=== PATIENT | male | born 1945 | race Caucasian/White ===

== ENCOUNTER → 2022-06-26 | Outpatient (CLI) | payer MEDICARE, SELFPAY ==
--- NOTE | 2022-06-26 16:43 | CT_ITS ---
INDICATION: OCCULAR PROPTOSIS EXAMINATION: CT IAC TEMPORAL BONES - CT IAC/PF/Orbit/Sella WO/W Contrast Injection TECHNIQUE:Routine noncontrast CT protocol was performed of the internal auditory canals and temporal bones. 2-D reformats were performed by the technologist. A radiation dose optimization technique was used for this scan. IV Contrast dosage and agent: None. COMPARISON: None. 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 This is likely orbital in origin. This is detailed on separate report of CT of the brain/head without and with contrast. RIGHT SIDE: No fracture. SUPERFICIAL SOFT TISSUES: Unremarkable. MASTOID AIR CELLS: Well aerated, unremarkable. EXTERNAL AUDITORY CANALS: Clear. MIDDLE EAR CAVITIES: Well aerated. Ossicles and scutum intact. INTERNAL AUDITORY CANALS: Unremarkable bilateral internal auditory canals. No osseous erosion or widening of the canal. INNER EAR: Unremarkable cochlea, vestibule and semicircular canals. LEFT SIDE: No fracture. SUPERFICIAL SOFT TISSUES: Unremarkable. MASTOID AIR CELLS: Well aerated, unremarkable. EXTERNAL AUDITORY CANALS: Clear. MIDDLE EAR CAVITIES: Well aerated. Ossicles and scutum intact. INTERNAL AUDITORY CANALS: Unremarkable bilateral internal auditory canals. No osseous erosion or widening of the canal. INNER EAR: Unremarkable cochlea, vestibule and semicircular canals. VISUALIZED BRAIN AND POSTERIOR FOSSA: Cerebello-pontine angles are unremarkable. CT/Orb Sella Post Fossa Ear W/WO IMPRESSION: Right orbital/frontal sinus mass. See separate report. IACs without and with contrast are normal. Electronically Signed: Umberto Feliciano MD, WADE at 17:12 EST ,
--- NOTE | 2022-06-26 16:43 | CT_ITS ---
INDICATION: OCCULAR PROPTOSIS EXAMINATION: CT BRAIN WITH AND WITHOUT CONTRAST - CT Head or Brain WO/W Contrast Injection TECHNIQUE: Multiple axial images were obtained of the brain with and without IV contrast. A radiation dose optimization technique was used for this scan. IV Contrast dosage and agent: COMPARISON: None. FINDINGS: BRAIN PARENCHYMA: Moderate cortical and central atrophy. Mild chronic microvascular ischemic change periventricular white matter. Moderate cerebellar atrophy. No intra- or extra-axial hemorrhage. No evidence of acute infarct. No intracranial mass or mass effect. There is preservation of the fatima/white matter interface. No abnormal contrast enhancement. CSF SPACES: Appropriate for age. No hydrocephalus. Basal cisterns are patent. CALVARIUM, SKULL BASE, PARANASAL SINUSES AND MASTOID AIR CELLS: Clear. No discrete lytic or blastic abnormalities. ORBITS: There is an enhancing soft tissue mass within the right orbit. This extends into the right frontal sinus. This produces inferior and anterior displacement of the right globe with moderate right exophthalmos. This mass lesion measures 3.39 cm transverse by 2.33 cm craniocaudal by 3.22 cm AP. Differential diagnostic considerations would include lymphoma, metastatic disease as well as lacrimal gland or duct neoplasm. Other considerations considered less likely would include rhabdomyosarcoma of the orbit. Retinoblastoma or optic nerve meningioma would be considered less likely as this appears to be originating outside of the globe and extrinsic to the optic nerve. ASPECTS Score for Acute Strokes: 10 CT/Brain/Head W/WO Contrast IMPRESSION: Right superior orbital mass. This produces inferior and anterior displacement of the right globe with moderate right exophthalmos. Differential considerations would include lymphoma or metastatic disease. Additional differential considerations detailed within the body of the report. Moderate cortical and central atrophy. Moderate cerebellar atrophy. Mild chronic microvascular ischemic change periventricular white matter. Electronically Signed: Umberto Feliciano MD, WADE at 17:07 EST ,
[2022-06-26 17:50] LABS: CREATININE FINGERSTICK < 0.9 mg/dL (0.70-1.30); EGFR FINGERSTICK > 60.0000 mL/min (>60)
== END | disposition home or self-care (01) ==
LOC: CT 16:41
PROVIDERS: PCP Preventive Medicine Occupational Medicine; Visit Provider Ophthalmology
DX: H05.20 Unspecified exophthalmos (principal)
CPT/HCPCS: 70470; 70482; Q9967

== ENCOUNTER 2022-06-29 17:06 | Emergency (ER) | payer MEDICARE, SELFPAY ==
[2022-06-29 17:07] VITALS: BP 188/51; PULSE 46; RESP 18; TEMP 36.4; O2SAT 97; BMI 27.3
[2022-06-29 17:19] VITALS: BP 196/67; PULSE 44; RESP 14; O2SAT 99
--- NOTE | 2022-06-29 17:30 | EKG12_ITS ---
Test Reason : MARILYN Blood Pressure : / mmHG Vent. Rate : 041 BPM Atrial Rate : 041 BPM P-R Int : 212 ms QRS Dur : 098 ms QT Int : 512 ms P-R-T Axes : 019 009 044 degrees QTc Int : 422 ms Marked sinus bradycardia with 1st degree A-V block Abnormal ECG Confirmed by GITA SEGURA, CHRISSY ([id number]), editorial cartoonist VIANEY HONEYCUTT ([id number]) on 07/01/2022 10:37:38 AM Referred By: NESTOR/ARAVIND Confirmed By:CHRISSY PELAYO MD
--- NOTE | 2022-06-29 17:31 | EDS_ITS ---
HPI History of Present Illness Chief Complaint: Chest Other Narrative Narrative: 77-year-old male presenting for evaluation of bradycardia. He states his heart rate is usually around 55. He was seen at [facility] today for preop clearance to have direct surgery, and had an EKG which was reportedly abnormal. Patient has not had any chest pain, palpitations, shortness of breath, fever, chills, cough. He does not feel dizzy. He states he is not lightheaded. He has been otherwise well. He is eating and drinking normally. Is making normal urine and stool. He has a history of four-vessel CABG distantly. He is not on any blood thinners. He does report that he is on losartan and carvedilol at home. There is been no medication changes. [facility] Medical History (Updated 06/29/22 @ 17:23 by Annabelle Ortez) Heart attack Hyperlipidemia Hypertension Allergy/AdvReac Type Severity Reaction Status Date / Time rofecoxib [From Vioxx] Allergy PT UNABLE Verified 06/29/22 17:26 TO RESPOND-NEEDS F/U Social History Smoking Status: Never smoker ROS ROS ED Constitutional Constitutional ED: Denies chills, fever(s) or sweats Eyes Eyes: Denies blurry vision or change in vision ENT ENT ED: Denies ear pain or sore throat Cardiovascular Cardiovascular: Denies chest pain, palpitations or racing heartbeat Respiratory/Chest Respiratory/Chest: Denies cough, dyspnea or sputum Gastrointestinal Gastrointestinal: Denies abdominal pain, constipation, diarrhea, nausea or vomiting Genitourinary Genitourinary ED: Denies dysuria, hematuria or urinary frequency Musculoskeletal Musculoskeletal: Denies arthralgias, myalgias or neck pain Integumentary Denies abscess, Abrasions or rash Neurologic Neurologic: Denies headache(s), paresthesias or weakness Psychiatric Psychiatric: Denies anxiety, depression, suicidal ideation or suicidal thoughts Endocrine Endocrinology: Denies polydipsia or polyuria EXAM Physical Exam Const Vital Signs: 06/29/22 17:07 06/29/22 17:19 06/29/22 17:23 Temperature 97.6 F L Temperature Source Temporal Pulse Rate 46 L 44 L Respiratory Rate 18 14 Respiratory Effort Normal Respiratory Pattern Normal Blood Pressure 188/51 H 196/67 H Blood Pressure Mean 96 110 Pulse Ox 97 99 Oxygen Delivery Method Room Air Room Air 06/29/22 17:30 Temperature Temperature Source Pulse Rate Respiratory Rate Respiratory Effort Respiratory Pattern Blood Pressure Blood Pressure Mean Pulse Ox Oxygen Delivery Method Room Air Positive well nourished General Appearance ED: NAD; Negative for pallor HEENT Reports moist mucous membranes Negative for trauma or tenderness Eyes PERRL and EOMs intact bilaterally General Eye ED: Negative for pale conjunctiva or scleral icterus Chest Wall inspection of chest normal Resp normal respiratory effort and clear to auscultation bilaterally Auscultation: Negative for rales, rhonchi or wheezes Cardio regular rhythm Rate: bradycardia GI normal to inspection, nondistended, normoactive bowel sounds Neuro oriented x3 and CN's II-XII intact bilaterally Sensorium / Orientation: alert Psych mental status grossly normal Skin no rashes or lesions noted, no wounds and skin turgor normal General Skin Exam: Negative for jaundice or pallor MDM MDM MDM Narrative Medical decision making narrative: Patient presenting with bradycardia. He states his heart rate is usually 55. He presents with an EKG which shows sinus bradycardia with a rate of 40 bpm. EKG was performed here and on my interpretation at 42 bpm with first-degree AV block. [place] interval 276 ms. CBC was obtained to see his differential. White blood count 7.6. Hemoglobin hematocrit are normal. Platelets within normal is at 202. Chemistry was obtained to assess renal function electrolytes. These are normal. High-sensitivity troponin is 11. Chest x-ray on my interpretation shows no acute cardiopulmonary process. Radiologist interprets this and agrees. Patient states that he is typically bradycardic. He is completely asymptomatic of it. He wants to be discharged home. I have not found a reason why he needs to stay in the hospital. Patient is to follow-up with his casing tester at the [place]. He is discharged in stable condition. Impression: 1. Sinus bradycardia Lab Data Attestation: I reviewed the patient's lab results. Labs: Laboratory Results - last 24 hr 06/29/22 06/29/22 17:25 17:25 WBC 7.6 RBC 5.24 Hgb 16.3 Hct 47.8 MCV 91.2 MCH 31.1 MCHC 34.1 RDW Std Deviation 42.2 RDW Coeff of Kal 12.8 Plt Count 202 MPV 10.3 Immature Gran % (Auto) 0.300 Neut % (Auto) 72.3 H Lymph % (Auto) 19.5 [place] % (Auto) 5.5 Eos % (Auto) 1.7 Baso % (Auto) 0.7 Absolute Neuts (auto) 5.5 Absolute Lymphs (auto) 1.49 Nucleated RBC % 0 Sodium 141 Potassium 4.0 Chloride 108 H Carbon Dioxide 26.0 Anion Gap 7 BUN 17 Creatinine 0.95 Estim Creat Clear Calc 68.30 Est GFR (MDRD) Af Amer 100 Est GFR (MDRD) Non-Af 82 BUN/Creatinine Ratio 18.0 Glucose 98 Calcium 8.9 Troponin I High Sens 11 Radiography Diagnostic Testing: Clinical Impression(s) from Imaging Studies Chest X-Ray 06/29/22 17:47 IMPRESSION: Evidence of prior CABG. There is no acute cardiopulmonary disease. Electronically Signed: Asael Torre DO at 18:00 EST Reading Location ID and State: [address] [place] [address] Tel [phone], Service support , Discharge Plan Triage Chief Complaint: Chest Other ED Provider: Eddie Cisse Dx/Rx/DC Orders Instructions: ED Bradycardia Primary Care Provider: Edgar Patten Referrals: Edgar Patten DO [Primary Care Provider] - Disposition Disposition: Home, Self Care
[2022-06-29 17:41] LABS: Absolute Lymphocyte Count 1.49 X10^3/uL (0.83-4.51); Absolute Neutrophil Count 5.5 X10^3/uL (2.0-7.7); Basophil# 0.05 X10^3/uL; Basophil% 0.7 % (0-1); Eosinophil# 0.13 X10^3/uL; Eosinophils% 1.7 % (0-5); Hematocrit 47.8 % (40-54); Hemoglobin 16.3 g/dL (13.0-16.5); Lymphocyte # 1.49 X10^3/ul (0.83-4.51); Lymphocyte % 19.5 % (19-41); Mean Corp Hgb Conc 34.1 g/dL (32-36); Mean Corpuscular Hgb 31.1 pg (27.0-32.0); Mean Corpuscular Volume 91.2 fL (80-94); Mean Platelet Vol. 10.3 fl (6.2-12.0); Monocyte# 0.42 X10^3/uL; Monocyte% 5.5 % (0-10); NRBC Flagged by Analyzer 0 % (0-5); Neutrophil # 5.52 X10^3/uL (2.7-7.7); Neutrophil % 72.3 % (47-70); Platelet Count 202 K/mm3 (150-450); RBC Distribution Width CV 12.8 % (11.6-14.6); RBC Distribution Width SD 42.2 fl (35.1-43.9); Red Blood Count 5.24 M/mm3 (4.6-6.2); White Blood Count 7.6 K/mm3 (4.4-11.0)
--- NOTE | 2022-06-29 17:47 | RAD_ITS ---
STUDY: X-RAY CHEST REASON FOR EXAM: Male, 77 years old. Chest pain. Sent over for abnormal EKG. TECHNIQUE: Single AP portable view of the chest. COMPARISON: None. FINDINGS: The lungs are clear and expanded. There is no demonstrated pleural abnormality. Evidence of prior CABG procedure. The heart is normal in size. Normal mediastinum and larry. Normal visualized pulmonary arteries. Normal visualized aortic arch and descending thoracic aorta. There are diffuse degenerative changes of the visualized thoracic spine. Normal visualized ribs, clavicles, and shoulders. There is no demonstrated abnormality of the visualized soft tissue structures of the upper abdomen. RAD/Chest 1 View (Portable) IMPRESSION: Evidence of prior CABG. There is no acute cardiopulmonary disease. Electronically Signed: Asael Torre DO at 18:00 EST ,
[2022-06-29 18:13] LABS: Anion Gap 7 (5-15); BUN 17 mg/dL (7-18); Calcium,Total 8.9 mg/dL (8.5-10.1); Chloride 108 mmol/L (98-107); Creatinine, Serum 0.95 mg/dL (0.70-1.30); EST Glomerular Filtration Rate 82 mL/min (>60); Est Glom Filt Rate - Afr Amer 100 mL/min (>60); Glucose 98 mg/dL (74-106); Sodium Level 141 mmol/L (136-145); Troponin-I HS 11 pg/mL (3.0-78.0)
[2022-06-29 19:10] VITALS: BP 189/63; PULSE 46
== END 2022-06-29 19:13 | disposition home or self-care (01) ==
PROVIDERS: Emergency Provider Student in an Organized Health Care Education/Training Program; PCP Preventive Medicine Occupational Medicine; Visit Provider Student in an Organized Health Care Education/Training Program
DX: R00.1 Bradycardia, unspecified (principal); I44.0 Atrioventricular block, first degree; E78.5 Hyperlipidemia, unspecified; I10 Essential (primary) hypertension; Z79.899 Other long term (current) drug therapy; I25.2 Old myocardial infarction; Z95.1 Presence of aortocoronary bypass graft
CPT/HCPCS: 71045; 80048; 84484; 85025; 93005; 99284; A4216